=== PATIENT | female | born 1985 | race Hispanic/Latino ===

== ENCOUNTER 2018-02-01 12:16 | Emergency (ER) | payer OTHER ==
[~2018-02-01] VITALS: Ht 157.5 cm; Wt 69.8 kg
[2018-02-01] MEDS ORDERED: FLEXERIL10 MG PO ×2 (14:14→14:16)
[2018-02-01] MEDS ORDERED: MOTRIN800 MG PO (14:14)
[2018-02-01 15:02] VITALS: BP 124/78
== END 2018-02-01 15:04 | disposition home or self-care (01) ==
LOC: EME 12:16
DX: S16.1XXA Strain of muscle, fascia and tendon at neck level, initial encounter (principal); S39.012A Strain of muscle, fascia and tendon of lower back, initial encounter; V43.52XA Car driver injured in collision with other type car in traffic accident, initial encounter; Y92.410 Unspecified street and highway as the place of occurrence of the external cause
CPT/HCPCS: 72040; 72100; 99281; 99284

== ENCOUNTER 2018-06-22 11:10 | Emergency (ER) | payer SELFPAY ==
[~2018-06-22] VITALS: Ht 157.5 cm; Wt 73.8 kg
[~2018-06-22 11:10] MED LIST: FLEXERIL10 MG PO; MOTRIN800 MG PO
[2018-06-22 11:49] LABS: BILIRUBIN NEGATIVE; BLOOD NEGATIVE; COLOR YELLOW ((YELLOW)); GLUCOSE (STRIP) NEGATIVE; KETONES NEGATIVE; LEUKOCYTES TRACE; NITRITE NEGATIVE; PROTEIN (STRIP) NEGATIVE; SPECIFIC GRAVITY 1.011 (1.000-1.030); UROBILINOGEN 0.2 MG/DL (0.2-1.0)
[2018-06-22 11:50] LABS: APPEARANCE SL.HAZY ((CLEAR))
[2018-06-22 11:52] LABS: BACTERIA RARE /HPF; EPITHELIAL CELLS 1+ /HPF; MUCUS TRACE /LPF; RED BLOOD CELLS 0-5 /HPF (0-5); UCUL ADDED? NO; WHITE BLOOD CELLS 0-5 /HPF (0-5)
[2018-06-22 12:05] LABS: HEMATOCRIT 37.3 % (36.0-46.0); HEMOGLOBIN 12.6 G/DL (11.9-15.5); MCH 30.4 PG (29.0-34.0); MCHC 33.8 G/DL (30.0-36.0); MCV 89.9 FL (83-99); PLATELET COUNT 362 K/uL (156-360); RBC DIS.WIDTH-CV 13.7 % (11.8-14.6); RBC DIS.WIDTH-SD 45.1 % (39-53); RED BLOOD COUNT 4.15 M/uL (3.80-5.20)
[2018-06-22 12:18] LABS: ALBUMIN 4.1 g/dL (3.2-4.8); CHLORIDE 106 mEq/L (99-109); POTASSIUM 4.2 mEq/L (3.7-5.4); SODIUM 137 mEq/L (136-147)
[2018-06-22 12:20] LABS: GLUCOSE 102 mg/dL (70-99)
[2018-06-22 12:21] LABS: TOTAL PROTEIN 8.1 g/dL (6.4-8.3)
[2018-06-22 12:22] LABS: TOTAL BILIRUBIN 0.4 mg/dL (0.0-1.0)
[2018-06-22 12:24] LABS: ALKALINE PHOSPHATASE 78 IU/L (3-129); CREATININE 0.6 mg/dL (0.6-1.3); GFR ESTIMATE (CALCULATED) > 59 mL/min/
[2018-06-22 12:25] LABS: UREA NITROGEN (BUN) 8 mg/dL (9-23)
[2018-06-22 12:26] LABS: AST (GOT) 19 IU/L (2-34)
[2018-06-22 12:27] LABS: ALT (GPT) 26 IU/L (3-49)
[2018-06-22 12:53] LABS: QUANTITATIVE HCG 76927.3 MIU/ML
[2018-06-22] MEDS ORDERED: KEFLEX500 MG PO (13:59)
[2018-06-22 14:19] VITALS: BP 114/72
== END 2018-06-22 14:21 | disposition home or self-care (01) ==
LOC: EME 11:10
DX: O23.41 Unspecified infection of urinary tract in pregnancy, first trimester (principal); Z3A.08 8 weeks gestation of pregnancy
CPT/HCPCS: 76801; 80053; 81003; 84702; 85027; 86900; 86901; 87086; 99281; 99285